=== PATIENT | male | born 1945 | race Caucasian/White ===

== ENCOUNTER 2016-05-04 10:23 | Emergency (ER) | payer OTHER ==
[2016-05-04 10:35] VITALS: RESP 20
[2016-05-04] MEDS ORDERED: KETOROLAC 60 MG/2 ML VIAL IM STA (11:36)
--- NOTE | 2016-05-04 11:52 | ED ---
General Adult HPI - General Chief complaint: Fall Stated complaint: Fall, [facility] Time Seen by Provider: 05/04/16 11:09 Source: patient, RN notes reviewed, old records reviewed Mode of arrival: ambulatory Limitations: no limitations - History of Present Illness Initial comments: This is a 62-year-old male ER for evaluation of fall. Patient has no significant 20 medical history, no headache chest pain shortness of breath or abdominal pain prior to fall. Patient did have a slip and fall from states fall as mechanical on the ice, not on blood thinners, patient did fall backwards landing on right hip right shoulder and hitting head. No loss of consciousness. Patient denies any other complaints of pain. Symptoms evaluate better when he is walking worse when he is sitting. - Related Data Allergies Allergy/AdvReac Type Severity Reaction Status Date / Time hydrocodone [From Lortab] Allergy Swelling Verified 05/04/16 11:38 Sulfa (Sulfonamide Allergy Unknown Verified 05/04/16 11:38 Antibiotics) Childhood Review of Systems ROS Statement: Those systems with pertinent positive or pertinent negative responses have been documented in the HPI. ROS Other: All systems not noted in ROS Statement are negative. Past Medical History Past Medical History: Coronary Artery Disease (CAD), Chest Pain / Angina, Hyperlipidemia, Hypertension, Myocardial Infarction ([place]) History of Any Multi-Drug Resistant Organisms: None Reported Past Surgical History: Heart Catheterization With Stent Additional Past Surgical History / Comment(s): cataract Past Psychological History: No Psychological Hx Reported Smoking Status: Never smoker Past Alcohol Use History: None Reported Past Drug Use History: None Reported General Exam - General Exam Comments Initial Comments: No bony tenderness Limitations: no limitations General appearance: alert, in no apparent distress Head exam: Present: atraumatic, normocephalic, normal inspection Eye exam: Present: normal appearance, PERRL, EOMI. Absent: scleral icterus, conjunctival injection, periorbital swelling ENT exam: Present: normal exam, mucous membranes moist Neck exam: Present: normal inspection. Absent: tenderness, meningismus, lymphadenopathy Respiratory exam: Present: normal lung sounds bilaterally. Absent: respiratory distress, wheezes, rales, rhonchi, stridor Cardiovascular Exam: Present: regular rate, normal rhythm, normal heart sounds. Absent: systolic murmur, diastolic murmur, rubs, gallop, clicks GI/Abdominal exam: Present: soft, normal bowel sounds. Absent: distended, tenderness, guarding, rebound, rigid Extremities exam: Present: normal inspection, full ROM, normal capillary refill. Absent: tenderness, pedal edema, joint swelling, calf tenderness Back exam: Present: normal inspection Neurological exam: Present: alert, oriented X3, CN II-XII intact Psychiatric exam: Present: normal affect, normal mood Skin exam: Present: warm, dry, intact, normal color. Absent: rash Course Vital Signs 05/04/16 10:32 Temperature 98.2 F Pulse Rate 61 Respiratory 20 Rate Blood Pressure 153/73 O2 Sat by Pulse 100 Oximetry - Reevaluation(s) Reevaluation #1: 05/04/16 11:51 Pain at this time is improved Medical Decision Making - Medical Decision Making 6 emailed ESS also to follow with right hip and right shoulder contusion as well as closed head injury. Patient will be discharged home to continue pain medication that he currently is on - Radiology Data Radiology results: report reviewed (CT brain C-spine negative for acute disease , x-ray right shoulder x-ray were negative for traumatic injury), image reviewed Disposition Clinical Impression: Fall, Contusion of right shoulder, Contusion of hip, right, Head injury Disposition: HOME SELF-CARE Condition: Good Instructions: Contusion in Adults (ED), Concussion (ED) Referrals: Nonstaff,Physician [Primary Care Provider] - 1-2 days
--- NOTE | 2016-05-04 12:49 | XR ---
EXAMINATION TYPE: XR Hip Complete RT DATE OF EXAM: 05/04/2016 12:09 PM COMPARISON: NONE HISTORY: Pain TECHNIQUE: 2 views right hip FINDINGS: No acute fractures are evident. The femoral head are difficult with the acetabulum. Vascula r calcification is present. IMPRESSION: 1. No acute osseous elements right hip. Follow-up can be performed as clinically indicated.
--- NOTE | 2016-05-04 12:51 | XR ---
EXAMINATION TYPE: XR shoulder complete RT DATE OF EXAM: 05/04/2016 12:09 PM COMPARISON: NONE HISTORY: Pain, fall on right side TECHNIQUE: Shoulder examined in 3 views FINDINGS: The humeral head articulates with the glenoid. No acromioclavicular joint hypertrophy is evident. There may be some hooking with downward impingemen t of the distal acromion No acute fractures or dislocations are evident. A follow up study can be performed 7-10 days from acute trauma for continued pain. IMPRESSION: 1. No acute osseous abnormality. 2. Some osteoarthritic degenerative change and acromion variation, which could contribute to impingem ent syndrome. Consider MRI for additional evaluation.
--- NOTE | 2016-05-04 13:11 | CT ---
EXAMINATION TYPE: CT brain kaelyn wo con DATE OF EXAM: 05/04/2016 12:22 PM COMPARISON: NONE HISTORY: Slip and fall on ice this am CT DLP: 1788.40 mGycm, Automated exposure control for dose reduction was used. CONTRAST: None CT of the brain is performed utilizing 3 mm thick sections through the posterior fossa and 3 mm thick sections through the remaining calvarium. Study is performed within 24 hours of arrival to the hospital. No abnormal hyperdensity is present to suggest an acute intracranial hemorrhage. No mass lesion is evident. No acute infarcts are evident. Ventricles and sulci are appropriate for the patient age. Paranasal sinuses and mastoid air cells within the [id number] are clear. IMPRESSIONS: 1. No acute intracranial process. CT cervical spine. COMPARISON: None CT of the cervical spine is performed in the axial plane at 2 mm thick sections. Reconstructed image s in the coronal, and sagittal plane are reviewed on the computer. No acute fractures are evident. Vertebral body alignment is normal. Disc space narrowing is present C5-4-5 C5-C6 C6-7. Uncovertebral joint hypertrophy has bilateral mode rate to severe foraminal stenosis. Endplate spurring is anterior thecal sac compression. Some associa dino disc material may be present. Uncovertebral joint hypertrophy is present C5-6 on the left with mo derate left foraminal stenosis. Endplate changes with associated disc material is present C6-7 with a nterior thecal sac compression. No AP spinal canal stenosis is present. Vertebral body heights are preserved. No spinal canal stenosis is evident. IMPRESSIONS: 1. Degenerative disc changes uncovertebral joint hypertrophy and endplate spurring with associated di sc material contributing to foraminal narrowing and anterior thecal sac compression discussed above. 2. No acute abnormality.
[2016-05-04 13:46] VITALS: BP 140/78; PULSE 80; TEMP 98
== END 2016-05-04 13:46 | disposition home or self-care (01) ==
LOC: EC 10:23
DX: S06.0X0A Concussion without loss of consciousness, initial encounter (principal); S40.011A Contusion of right shoulder, initial encounter; S70.01XA Contusion of right hip, initial encounter; Z88.5 Allergy status to narcotic agent; Z88.2 Allergy status to sulfonamides; W00.0XXA Fall on same level due to ice and snow, initial encounter
CPT/HCPCS: 99284; 96372; 73502; 73030; 72125; 70450; J1885

== ENCOUNTER → 2016-05-25 | Outpatient (CLI) | payer OTHER ==
--- NOTE | 2016-05-25 16:28 | US ---
EXAMINATION TYPE: US venous doppler duplex LE RT DATE OF EXAM: 05/25/2016 4:18 PM COMPARISON: NONE CLINICAL HISTORY: RLE Pain and Swelling 580.11XA,583.91XA. rt knee pain and swelling, no prev dvt SIDE PERFORMED: right VESSELS IMAGED: External Iliac Vein (EIV) Common Femoral Vein Deep Femoral Vein Femoral Vein Popliteal Vein Proximal Calf Veins Findings: No evidence for filling defect. The deep venous structures demonstrate normal compressibili ty and augmentation of flow. Right Leg: neg for RLE dvt Results given to Taina in the office at the time of the exam. IMPRESSION: Negative for DVT.
--- NOTE | 2016-05-25 16:37 | XR ---
EXAMINATION TYPE: XR tibia fibula RT DATE OF EXAM: 05/25/2016 4:33 PM CLINICAL HISTORY: pain TECHNIQUE: AP and lateral images of the right tibia and fibula are obtained. COMPARISON: None. FINDINGS: There is no acute fracture/dislocation evident. The joint spaces appear within normal gunter its. The overlying soft tissue appears unremarkable. IMPRESSION: There is no acute fracture or dislocation seen. ICD 10 NO FRACTURE, INITIAL EVALUATION
== END | disposition home or self-care (01) ==
LOC: RADUSWWP 15:38
PROVIDERS: ATTEND Emergency Medicine
DX: S80.11XA Contusion of right lower leg, initial encounter (principal); S83.91XA Sprain of unspecified site of right knee, initial encounter

== ENCOUNTER → 2018-03-26 | Day surgery (SDC) | payer OTHER ==
[2018-03-16 13:46] VITALS: BMI 30.4
[~2018-03-26] MED LIST: GLYCOPYRROLATE 0.2 MG/ML 2 ML VIAL ONE; LACTATED RINGERS 1,000 ML IV SCH; LIDOCAINE 1% 20 ML VIAL (10MG/ML) FOR IV START INTRADERMA ONE; LIDOCAINE 1% INJ 10MG/ML (20 ML MDV) ONE; PROPOFOL 10 MG/ML 20 ML VIAL IV ONE
[2018-03-26 09:24] VITALS: RESP 16; TEMP 98.1
[2018-03-26 09:40] LABS: Glucose,Whole Blood 122 mg/dL (75-99)
--- NOTE | 2018-03-26 10:26 | P.PCN ---
Date of Procedure: 03/26/18 Procedure(s) Performed: Procedure: 1. Esophagogastroduodenoscopy and biopsy. 2. Total colonoscopy. Preoperative diagnosis: Dysphagia and history of polyps. Postoperative diagnosis: 1. Small sliding hiatal hernia with no obvious esophagitis or complicated reflux disease. 2. Mild antral gastritis. 3. Biopsies obtained from the antrum and esophagus. Colonic exam within normal limits. Preparation: HalfLytely prep. Sedation: Was provided by anesthesia. Brief clinical history: The patient is a 72-year-old male who is referred for this evaluation because of history of polyps in addition to dysphagia for the last year or so. His last colonoscopy may have been around 10 years ago. The patient denied weight loss or other alarm symptoms. He has taken medical therapy for acid reflux. Procedure: With the patient on his left lateral decubitus position and after informed consent and adequate sedation, I passed the Olympus-Five minutes H190 video upper endoscope through the cricopharyngeus down the esophagus. GE junction was around 40 cm from the incisors and there was a small sliding hiatal hernia but no obvious esophagitis or complicated reflux disease. The endoscope was then passed into the stomach which was insufflated with air and inspected in detail including the retroflex view in the cardia. There was some mottling and erythema in the antrum but no ulcers or erosions. Pyloric channel, duodenal bulb, post bulbar area and descending duodenum appeared within normal limits. I obtained biopsies from the antrum and esophagus then the endoscope was withdrawn I then then proceeded with the colonoscopy. Perianal area did not show any fissures or fistulas. There were no masses felt on digital rectal examination. The Olympus CFH 190L video colonoscope was then inserted in the rectum in the usual fashion and advanced to the cecum. The mucosa appeared healthy. No obvious polyps or tumors were seen or any obvious diverticular disease or other pathology. I retroflexed the endoscope in the rectum before the endoscope was withdrawn. The patient tolerated the procedure well. Plan: The patient was reassured. Will await biopsy results. I recommended repeat colonoscopy in 5 years. Further workup of his dysphagia to include motility studies will depend on his symptoms and overall nutritional status.
[2018-03-26 11:05] VITALS: BP 132/86; PULSE 61
== END ==
LOC: ORWHC2ENDO 08:36
DX: Z12.11 Encounter for screening for malignant neoplasm of colon (principal); K29.50 Unspecified chronic gastritis without bleeding; K44.9 Diaphragmatic hernia without obstruction or gangrene; Z86.010 Personal history of colon polyps; K21.9 Gastro-esophageal reflux disease without esophagitis; E11.9 Type 2 diabetes mellitus without complications; I25.10 Atherosclerotic heart disease of native coronary artery without angina pectoris; I10 Essential (primary) hypertension; E78.5 Hyperlipidemia, unspecified; I25.2 Old myocardial infarction; F17.200 Nicotine dependence, unspecified, uncomplicated; M19.90 Unspecified osteoarthritis, unspecified site; Z88.2 Allergy status to sulfonamides; Z88.5 Allergy status to narcotic agent; Z79.84 Long term (current) use of oral hypoglycemic drugs; Z79.82 Long term (current) use of aspirin; Z79.899 Other long term (current) drug therapy
CPT/HCPCS: 88305; 88342; 43239; J2001; J2704; G0105; 45378

== ENCOUNTER 2019-05-12 20:26 | Observation (INO) | payer OTHER, MEDICARE ==
[2019-05-12] MEDS ORDERED: PANTOPRAZOLE 40 MG/10 ML VIAL IVP STA (21:23)
[2019-05-12 21:33] LABS: Basophils % (A) 1 %; Eosinophils # (A) 0.3 k/uL (0-0.7); Eosinophils % (A) 6 %; HCT 42.4 % (39.0-53.0); HGB 14.3 gm/dL (13.0-17.5); Lymphocytes # (A) 1.4 k/uL (1.0-4.8); Lymphocytes % (A) 27 %; MCH 31.6 pg (25.0-35.0); MCHC 33.7 g/dL (31.0-37.0); MCV 93.6 fL (80.0-100.0); Mean Platelet Volume 7.4; Monocytes # (A) 0.3 k/uL (0-1.0); Monocytes % (A) 6 %; Neutrophils # (A) 2.9 k/uL (1.3-7.7); Neutrophils % (A) 58 %; Platelet Count 125 k/uL (150-450); RBC 4.53 m/uL (4.30-5.90); RDW 13.4 % (11.5-15.5)
--- NOTE | 2019-05-12 21:40 | ED ---
Chest Pain HPI - General Source: patient Mode of arrival: ambulatory Limitations: no limitations <Nadya Azevedo - Last Filed: 05/12/19 23:36> <Lindsey Baldwin - Last Filed: 05/13/19 23:28> - General Chief Complaint: Chest Pain Stated Complaint: Chest pain Time Seen by Provider: 05/12/19 21:15 - History of Present Illness Initial Comments: Patient is a 73-year-old male, with past medical history of heart disease, presenting to the emergency Department with complaints of a chest pain that started 1 hour prior to arrival. Patient states he describes the pain as starting in the middle of his chest and it feels like it is burning that is moving upwards. Patient states it lasted for proximally 10 minutes and then has subsided. He is currently pain-free. He states he has had a heart attack in the past and having to have 3 stents placed and he feels like this feeling was similar to that. Patient states he does take a medicine for heartburn. He states he gets this feeling on multiple occasions sometimes it lasts only 10 minutes sometimes 1 minute. He denies any chest pressure or pain in his left a rm. He denies any nausea, vomiting, abdominal pain, shortness of breath. He denies having a fever. He has no other complaints at this time. Upon arrival to the ER his vital signs are stable. (Nadya Azevedo) - Related Data Home Medications Medication Instructions Recorded Confirmed Atorvastatin [Lipitor] 40 mg PO HS 08/17/17 05/13/19 Lisinopril [Prinivil] 10 mg PO DAILY 08/17/17 05/13/19 Omeprazole [PriLOSEC] 20 mg PO AC-BID 08/17/17 05/13/19 metFORMIN HCL [Glucophage] 500 mg PO DAILY 08/17/17 05/13/19 Aspirin 325 mg PO DAILY 03/16/18 05/13/19 Cholecalciferol [Vitamin D3 (25 1,000 unit PO DAILY 05/13/19 05/13/19 Mcg = 1000 Iu)] Allergies Allergy/AdvReac Type Severity Reaction Status Date / Time hydrocodone [From Lortab] Allergy Swelling Verified 05/13/19 09:36 Sulfa (Sulfonamide Allergy Unknown Verified 05/13/19 09:36 Antibiotics) Childhood tramadol Allergy throat and Verified 05/13/19 09:36 mouth swelling Review of Systems ROS Other: All systems not noted in ROS Statement are negative. <JollyNadya Francisco - Last Filed: 05/12/19 23:36> ROS Other: All systems not noted in ROS Statement are negative. <Lindsey Baldwin - Last Filed: 05/13/19 23:28> ROS Statement: Those systems with pertinent positive or pertinent negative responses have been documented in the HPI. EKG Findings - EKG Comments: EKG Findings:: Ventricular rate 56, IL interval 240, QTC 399. Sinus bradycardia with first-degree AV block. No acute ST segment elevations. <Nadya Azevedo - Last Filed: 05/12/19 23:36> Past Medical History Past Medical History: Coronary Artery Disease (CAD), Diabetes Mellitus, GERD/Reflux, Hyperlipidemia, Hypertension, Myocardial Infarction (ID), Osteoarthritis (OA), Skin Disorder Additional Past Medical History / Comment(s): palpitations, constipation/diarrhea, has had blood in stool, hx gout, skin tags, Last Myocardial Infarction Date:: 2014 History of Any Multi-Drug Resistant Organisms: None Reported Past Surgical History: Heart Catheterization With Stent, Tonsillectomy Additional Past Surgical History / Comment(s): abdi cataracts, 3 cardiac stents Past Anesthesia/Blood Transfusion Reactions: No Reported Reaction Date of Last Stent Placement:: unknown Past Psychological History: Anxiety, Depression Smoking Status: Former smoker Past Alcohol Use History: None Reported Past Drug Use History: None Reported - Past Family History Mother Family Medical History: Myocardial Infarction (ID) Father Family Medical History: Congestive Heart Failure (CHF) <Nadya Azevedo - Last Filed: 05/12/19 23:36> General Exam Limitations: no limitations <Nadya Azevedo - Last Filed: 05/12/19 23:36> - General Exam Comments Initial Comments: GENERAL: Well-appearing, well-nourished and in no acute distress. HEAD: Atraumatic, normocephalic. EYES: Pupils equal round and reactive to light, extraocular movements intact, sclera anicteric, conjunctiva are normal. ENT: TMs normal, nares patent, oropharynx clear without exudates. Moist mucous membranes. NECK: Normal range of motion, supple without lymphadenopathy or JVD. LUNGS: Breath sounds clear to auscultation bilaterally and equal. No wheezes rales or rhonchi. HEART: Regular rate and rhythm without murmurs, rubs or gallops. No pain with palpation of the sternum. ABDOMEN: Soft, nontender, normoactive bowel sounds. No guarding, no rebound. No masses appreciated. : Deferred EXTREMITIES: Normal range of motion, no pitting or edema. No clubbing or cyanosis. NEUROLOGICAL: Normal speech, normal gait. PSYCH: Normal mood, normal affect. SKIN: Warm, Dry, normal turgor, no rashes or lesions noted. (Nadya Azevedo) Course Vital Signs 05/12/19 05/12/19 20:37 22:07 Temperature 98.3 F 97.4 F L Pulse Rate 58 L 54 L Respiratory 16 18 Rate Blood Pressure 145/82 129/88 O2 Sat by Pulse 96 96 Oximetry Chest Pain [facility] <Nadya Azevedo - Last Filed: 05/12/19 23:36> <Lindsey Baldwin - Last Filed: 05/13/19 23:28> - [facility] Patient is a 73-year-old male presenting with chest discomfort happen one hour prior to arrival. He states this lasted approximately 10 minutes and is currently symptom free. His exam is unremarkable. Vital signs are stable. EKG shows bradycardia with first-degree AV block, no other acute abnormalities. Patient's lab work today is unremarkable, troponin is normal. Chest x-ray shows no acute findings. I discussed these findings with the patient. Patient was reassessed and continues to be symptom free. Patient does have significant heart history and given this with his symptom onset I recommended him stay in observation with cardiac consult. Patient is in agreement with this. Patient will be admitted under Dr. Okeefe with consult to cardiology. Case discussed with Dr. Baldwin who agrees to this plan of care. (Nadya Azevedo) I was available for consultation in the emergency department. The history and physical exam were done by the midlevel provider. I was consulted for this patients care. I reviewed the case with the midlevel provider and based on their presentation of the patient, I agree with the assessment, medical decision making and plan of care as documented. The patient presents with chest pain. I evaluated him myself and he was pain free with no reproducible pain. We recommended hospital admission for which the patient agreed. He was admitted to Dr. Okeefe who i discussed the case with. Chart was dictated using [employer] dictation software. Attempts were made to correct any dictation errors however some typographical errors may persist. (Lindsey Baldwin) Disposition Is patient prescribed a controlled substance at d/c from ED?: No Decision Date: 05/12/19 Decision Time: 22:40 <Nadya Azevedo - Last Filed: 05/12/19 23:36> <Lindsey Baldwin - Last Filed: 05/13/19 23:28> Clinical Impression: Chest pain Disposition: ADMITTED IP TO THIS HOSP Condition: Stable
[2019-05-12 21:42] LABS: ALT 46 U/L (4-49); AST 36 U/L (17-59); African American GFR (CKD) >90 (>60 ml/min/1.73 sqM); Albumin 4.5 g/dL (3.5-5.0); Alkaline Phosphatase 77 U/L (38-126); Anion Gap 8 mmol/L; Blood Urea Nitrogen 17 mg/dL (9-20); Calcium 9.6 mg/dL (8.4-10.2); Carbon Dioxide 25 mmol/L (22-30); Chloride 103 mmol/L (98-107); Glucose 131 mg/dL (74-99); Magnesium 1.8 mg/dL (1.6-2.3); Non-African American GFR(CKD) 88 (>60 ml/min/1.73 sqM); Potassium 4.2 mmol/L (3.5-5.1); Sodium 136 mmol/L (137-145); Total Bilirubin 0.5 mg/dL (0.2-1.3); Total Protein 7.1 g/dL (6.3-8.2)
[2019-05-12 21:44] LABS: Partial Thromboplastin Time 25.8 sec (22.0-30.0); Prothrombin Time 10.5 sec (9.0-12.0)
--- NOTE | 2019-05-12 21:50 | XR ---
EXAMINATION TYPE: XR chest 2V DATE OF EXAM: 05/12/2019 COMPARISON: 01/20/2013 HISTORY: Chest pain TECHNIQUE: FINDINGS: Heart is normal. Lungs are clear of infiltrate. There is no pleural effusion. There are no hilar masses. Thoracic aorta is atheromatous. Bony thorax is intact. IMPRESSION: No active cardiopulmonary disease. No change.
[2019-05-12 22:09] VITALS: RESP 18
[2019-05-12] MEDS ORDERED: NITROGLYCERIN SL TABS 0.4 MG TAB SUBLINGUAL PRN (22:38)
[2019-05-13 03:28] LABS: Cholesterol 159 mg/dL (<200); HDL Cholesterol 33 mg/dL (40-60); LDL Cholesterol,Calculated 58 mg/dL (0-99); Triglycerides 339 mg/dL (<150)
[2019-05-13 08:37] VITALS: TEMP 97.6
--- NOTE | 2019-05-13 08:44 | P.CRDCN ---
History of Present Illness History of present illness: This is Dr. Seay dictating a consult on this patient The patient was interviewed and examined by me IMPRESSION / ASSESSMENT: Midsternal chest discomfort radiating up into the jaw and neck, associated with dizziness, similar to his episode when he had acute myocardial infarction and 3 stents placed Type 2 diabetes Hypertension Normal cardiac enzymes Elevated triglycerides of 339, LDL 58 and HDL 33 Patient states he had a coronary stent in this hospital but I don't see any records of that in the EMR PLAN: Coronary angiography versus stress testing. Discussed the patient. I would recommend coronary angiography since his symptoms are very similar to what he experienced 3 years back Continue cardiac medications HPI Patient was sitting watching television when he started experiencing midsternal chest discomfort that radiated to the neck and was associated with dizziness. The episode lasted for about 10 minutes. He describes it as a burning discomfort similar to his heart attack 3 years back. Normal cardiac enzymes On appropriate medical treatment atorvastatin lisinopril, metoprolol and metformin and aspirin ROS: No fever chills or rigors, no cough, phlegm or expectoration, no nausea, vomiting or diarrhea, no hematuria, dysuria, no musculoskeletal complaints, no strokes or seizures, no skin lesions. EXAMINATION: Afebrile pulse rate in the 50s blood pressure 115/68 mmHg Breath sounds are clear no rhonchi no crackles Normal heart sounds no murmurs no gallops No carotid bruits no JVD Patient is lying in bed comfortably, supine Abdomen soft nontender Complains of intermittent discomfort in the right groin pulses are well palpable. Has been told he has an aneurysm repair REVIEW OF LABS, ECG & MEDICAL DATA Past history of coronary artery disease status post cardiac stenting in the setting of an acute myocardial infarction according to the patient, diabetes was discovered thereafter did history of elevated triglycerides and a low HDL, hypertension Coronary stenting Normal white count, hemoglobin 14.3, platelet count 125,000 Sodium 136, potassium 4.2 Serial cardiac enzymes are normal Triglycerides 339, LDL 58 HDL 33 total. 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, unsure of the exact location of this time we will get records He's had a peripheral angiogram in the past Past Medical History Past Medical History: Coronary Artery Disease (CAD), Diabetes Mellitus, GERD/Reflux, Hyperlipidemia, Hypertension, Myocardial Infarction ([place]), Osteoarthritis (OA), Skin Disorder Additional Past Medical History / Comment(s): palpitations, constipation/diarrhea, has had blood in stool, hx gout, skin tags, Last Myocardial Infarction Date:: 2014 History of Any Multi-Drug Resistant Organisms: None Reported Past Surgical History: Heart Catheterization With Stent, Tonsillectomy Additional Past Surgical History / Comment(s): abdi cataracts, 3 cardiac stents Past Anesthesia/Blood Transfusion Reactions: No Reported Reaction Date of Last Stent Placement:: unknown Past Psychological History: Anxiety, Depression Smoking Status: Former smoker Past Alcohol Use History: None Reported Past Drug Use History: None Reported - Past Family History Mother Family Medical History: Myocardial Infarction (ND) Father Family Medical History: Congestive Heart Failure (CHF) Medications and Allergies Home Medications Medication Instructions Recorded Confirmed Type Atorvastatin [Lipitor] 40 mg PO HS 08/17/17 03/26/18 History Hydrocodone/Acetaminophen [Vicodin 1 each PO BID PRN 08/17/17 03/26/18 History Es 7.5-300 mg Tablet] Lisinopril [Prinivil] 5 mg PO BID 08/17/17 03/26/18 History Metoprolol Tartrate [Lopressor] 12.5 mg PO BID 08/17/17 03/26/18 History Omeprazole [PriLOSEC] 20 mg PO AC-BID 08/17/17 03/26/18 History metFORMIN HCL [Glucophage] 500 mg PO DAILY 08/17/17 03/26/18 History Aspirin 325 mg PO DAILY 03/16/18 03/26/18 History Allergies Allergy/AdvReac Type Severity Reaction Status Date / Time hydrocodone [From Lortab] Allergy Swelling Verified 05/12/19 20:41 Sulfa (Sulfonamide Allergy Unknown Verified 05/12/19 20:41 Antibiotics) Childhood tramadol Allergy throat and Verified 05/12/19 20:41 mouth swelling Physical Exam Vitals: Vital Signs Temp Pulse Pulse Resp BP BP Pulse Ox 05/13/19 08:00 97.6 F 50 L 18 115/68 96 05/13/19 04:00 97.5 F L 46 L 18 114/66 96 05/13/19 00:00 54 L 18 05/12/19 23:45 97.4 F L 54 L 18 143/95 99 05/12/19 22:07 97.4 F L 54 L 18 129/88 96 05/12/19 20:37 98.3 F 58 L 16 145/82 96 Intake and Output 05/12/19 05/13/19 05/13/19 22:59 06:59 14:59 Other: Weight 90.718 kg 92.3 kg Results 05/12/19 20:48 05/12/19 20:48 Cardiac Enzymes 05/12/19 05/12/19 05/13/19 Range/Units 20:48 20:48 02:56 AST 36 (17-59) U/L Troponin I <0.012 <0.012 (0.000-0.034) ng/mL Coagulation 05/12/19 Range/Units 20:48 PT 10.5 (9.0-12.0) sec APTT 25.8 (22.0-30.0) sec Lipids 05/13/19 Range/Units 02:56 Triglycerides 339 H (<150) mg/dL Cholesterol 159 (<200) mg/dL HDL Cholesterol 33 L (40-60) mg/dL CBC 05/12/19 Range/Units 20:48 WBC 5.0 (3.8-10.6) k/uL RBC 4.53 (4.30-5.90) m/uL Hgb 14.3 (13.0-17.5) gm/dL Hct 42.4 (39.0-53.0) % Plt Count 125 L (150-450) k/uL Comprehensive Metabolic Panel 05/12/19 Range/Units 20:48 Sodium 136 L (137-145) mmol/L Potassium 4.2 (3.5-5.1) mmol/L Chloride 103 (98-107) mmol/L Carbon Dioxide 25 (22-30) mmol/L BUN 17 (9-20) mg/dL Creatinine 0.84 (0.66-1.25) mg/dL Glucose 131 H (74-99) mg/dL Calcium 9.6 (8.4-10.2) mg/dL AST 36 (17-59) U/L ALT 46 (4-49) U/L Alkaline Phosphatase 77 (38-126) U/L Total Protein 7.1 (6.3-8.2) g/dL Albumin 4.5 (3.5-5.0) g/dL Current Medications Generic Name Dose Route Start Last Admin Trade Name Freq PRN Reason Stop Dose Admin Aspirin 325 mg 05/13/19 09:00 Aspirin PO DAILY TIMI Nitroglycerin 0.4 mg 05/12/19 22:38 Nitrostat SUBLINGUAL Q5M PRN Chest Pain Intake and Output 05/12/19 05/13/19 05/13/19 22:59 06:59 14:59 Other: Weight 90.718 kg 92.3 kg 05/12/19 20:48 05/12/19 20:48
[2019-05-13] MEDS ORDERED: ASPIRIN 325 MG TAB PO SCH ×2 (09:00→10:15)
[2019-05-13 09:50] LABS: Glucose,Whole Blood 137 mg/dL (75-99)
[2019-05-13] MEDS ORDERED: PANTOPRAZOLE 40 MG TABLET PO SCH (10:15)
[2019-05-13] MEDS ORDERED: METOPROLOL TARTRATE 12.5 MG TAB PO SCH (10:15)
[2019-05-13] MEDS ORDERED: CHOLECALCIFEROL 1,000 UNIT TAB PO SCH (10:15)
[2019-05-13] MEDS ORDERED: ALPRAZolam 0.5 MG TAB PO PRN (10:21)
[2019-05-13] MEDS ORDERED: ALPRAZolam 0.25 MG TAB PO PRN (10:21)
[2019-05-13] MEDS ORDERED: SODIUM CHLORIDE 0.9% 1,000 ML in EMPTY BAG 1 BAG IV ONE (10:21)
[2019-05-13] MEDS ORDERED: ASPIRIN 325 MG TAB PO ONE (10:25)
--- NOTE | 2019-05-13 11:09 | P.HPIM ---
History of Present Illness Patient came in with the complaints of epigastric abdominal burning sensation without nausea patient had similar pain many abdomen had a microinfarction and at that time he ended up with 3 stents. Patient denied and diaphoresis asso ciated with the denied any nausea there is any is some associated dizziness patient denied any cough patient chest pain is constant moderate in severity nonradiating. Because he had similar pain in the past cardiology is recommending cardiac catheterization patient is willing to go for cardiac cath eterization today. Although gastroesophageal reflux disease or gastritis continue bit into his symptoms cannot be ruled out patient is oriented Protonix y EKG showing sinus bradycardia. Chest x-ray did not show any infiltrate. Review of Systems REVIEW OF SYSTEMS: CONSTITUTIONAL: No fever, no malaise, no fatigue. HEENT: No recent visual problems or hearing problems. Denied any sore throat. CARDIOVASCULAR: No orthopnea, PND, no palpitations, no syncope. PULMONARY: No shortness of breath, no cough, no hemoptysis. GASTROINTESTINAL: No diarrhea, no nausea, no vomiting, no abdominal pain. NEUROLOGICAL: No headaches, no weakness, no numbness. HEMATOLOGICAL: Denies any bleeding or petechiae. GENITOURINARY: Denies any burning micturition, frequency, or urgency. MUSCULOSKELETAL/RHEUMATOLOGICAL: Denies any joint pain, swelling, or any muscle pain. ENDOCRINE: Denies any polyuria or polydipsia. The rest of the 14-point review of systems is negative. Past Medical History Past Medical History: Coronary Artery Disease (CAD), Diabetes Mellitus, GERD/Reflux, Hyperlipidemia, Hypertension, Myocardial Infarction (AR), Osteoarthritis (OA), Skin Disorder Additional Past Medical History / Comment(s): palpitations, constipation/diarrhea, has had blood in stool, hx gout, skin tags, Last Myocardial Infarction Date:: 2014 History of Any Multi-Drug Resistant Organisms: None Reported Past Surgical History: Heart Catheterization With Stent, Tonsillectomy Additional Past Surgical History / Comment(s): abdi cataracts, 3 cardiac stents Past Anesthesia/Blood Transfusion Reactions: No Reported Reaction Date of Last Stent Placement:: unknown Past Psychological History: Anxiety, Depression Smoking Status: Former smoker Past Alcohol Use History: None Reported Past Drug Use History: None Reported - Past Family History Mother Family Medical History: Myocardial Infarction (AR) Father Family Medical History: Congestive Heart Failure (CHF) Medications and Allergies Home Medications Medication Instructions Recorded Confirmed Type Atorvastatin [Lipitor] 40 mg PO HS 08/17/17 05/13/19 History Lisinopril [Prinivil] 10 mg PO DAILY 08/17/17 05/13/19 History Metoprolol Tartrate [Lopressor] 12.5 mg PO BID 08/17/17 05/13/19 History Omeprazole [PriLOSEC] 20 mg PO AC-BID 08/17/17 05/13/19 History metFORMIN HCL [Glucophage] 500 mg PO DAILY 08/17/17 05/13/19 History Aspirin 325 mg PO DAILY 03/16/18 05/13/19 History Cholecalciferol [Vitamin D3 (25 1,000 unit PO DAILY 05/13/19 05/13/19 History Mcg = 1000 Iu)] Allergies Allergy/AdvReac Type Severity Reaction Status Date / Time hydrocodone [From Lortab] Allergy Swelling Verified 05/13/19 09:36 Sulfa (Sulfonamide Allergy Unknown Verified 05/13/19 09:36 Antibiotics) Childhood tramadol Allergy throat and Verified 05/13/19 09:36 mouth swelling Physical Exam Vitals: Vital Signs Temp Pulse Pulse Resp BP BP Pulse Ox 05/13/19 08:00 97.6 F 50 L 18 115/68 96 05/13/19 04:00 97.5 F L 46 L 18 114/66 96 05/13/19 00:00 54 L 18 05/12/19 23:45 97.4 F L 54 L 18 143/95 99 05/12/19 22:07 97.4 F L 54 L 18 129/88 96 05/12/19 20:37 98.3 F 58 L 16 145/82 96 Intake and Output 05/12/19 05/13/19 05/13/19 22:59 06:59 14:59 Other: Voiding Method Toilet Weight 90.718 kg 92.3 kg PHYSICAL EXAMINATION: GENERAL: The patient is alert and oriented x3, not in any acute distress. Well developed, well nourished. HEENT: Pupils are round and equally reacting to light. EOMI. No scleral icterus. No conjunctival pallor. Normocephalic, atraumatic. No pharyngeal erythema. No thyromegaly. CARDIOVASCULAR: S1 and S2 present. No murmurs, rubs, or gallops. PULMONARY: Chest is clear to auscultation, no wheezing or crackles. ABDOMEN: Soft, nontender, nondistended, normoactive bowel sounds. No palpable organomegaly. MUSCULOSKELETAL: No joint swelling or deformity. EXTREMITIES: No cyanosis, clubbing, or pedal edema. NEUROLOGICAL: Gross neurological examination did not reveal any focal deficits. SKIN: No rashes. Results CBC & Chem 7: 05/12/19 20:48 05/12/19 20:48 Labs: Abnormal Lab Results - Last 24 Hours (Table) 05/12/19 05/12/19 05/13/19 Range/Units 20:48 20:48 02:56 Plt Count 125 L (150-450) k/uL Sodium 136 L (137-145) mmol/L Glucose 131 H (74-99) mg/dL POC Glucose (mg/dL) (75-99) mg/dL Triglycerides 339 H (<150) mg/dL HDL Cholesterol 33 L (40-60) mg/dL 05/13/19 Range/Units 09:47 Plt Count (150-450) k/uL Sodium (137-145) mmol/L Glucose (74-99) mg/dL POC Glucose (mg/dL) 137 H (75-99) mg/dL Triglycerides (<150) mg/dL HDL Cholesterol (40-60) mg/dL Thrombosis Risk Factor Assmnt - Choose All That Apply Any of the Below Risk Factors Present?: Yes Each Factor Represents 1 point: Acute AR, Obesity (BMI >25) Other Risk Factors: Yes Each Risk Factor Represents 2 Points: Age 61-74 years Other congenital or acquired thrombophilia - If yes, enter type in comment: No Thrombosis Risk Factor Assessment Total Risk Factor Score: 4 Thrombosis Risk Factor Assessment Level: Moderate Risk Assessment and Plan Plan: -Chest pain: Your cardiac her gases with reflux disease patient will undergo cardiac catheterization of this negative patient will be discharged on a Prilosec for 14 days. -Coronary artery disease with previous stents in the past on metoprolol is being held because of bradycardia a she is under dose of metoprolol very low-dose of metoprolol. Probably will not require metoprolol Discharge type 2 diabetes mellitus metformin will be held and the patient was started on sliding scale insulin -Hypertension -Coronary artery disease-hold off lisinopril because of low normal blood pressure probably he'll require this medication upon discharge
[2019-05-13 11:35] LABS: Glucose,Whole Blood 135 mg/dL (75-99)
[2019-05-13] MEDS ORDERED: IV FLUID CONTINUATION 950 ML IV ONE (12:10)
[2019-05-13] MEDS ORDERED: LIDOCAINE 1% INJ 10MG/ML (20 ML MDV) ONE (12:12)
[2019-05-13] MEDS ORDERED: VERAPAMIL 2.5 MG/ML 2 ML AMP ONE (12:12)
[2019-05-13] MEDS ORDERED: HEPARIN SODIUM 1,000 UN/ML (10ML VL) ONE (12:23)
[2019-05-13] MEDS ORDERED: fentaNYL (PF) 50 MCG/ML 2 ML AMP ONE (12:23)
[2019-05-13] MEDS ORDERED: fentaNYL (PF) 50 MCG/ML 2 ML AMP IV ONE (12:26)
[2019-05-13] MEDS ORDERED: LIDOCAINE 1% INJ 10MG/ML (20 ML MDV) SQ ONE (12:30)
[2019-05-13] MEDS ORDERED: MIDAZOLAM 2 MG/2 ML VIAL IV ONE (12:31)
[2019-05-13] MEDS ORDERED: VERAPAMIL SYRINGE (5 MG/10 ML) INTRAARTER ONE (12:31)
[2019-05-13] MEDS ORDERED: HEPARIN SODIUM 1,000 UN/ML (10ML VL) IV ONE (12:40)
[2019-05-13] MEDS ORDERED: IOPAMIDOL-370 125ML BTL INJ ONE (12:43)
[2019-05-13] MEDS ORDERED: RX INFO: IV CONTRAST WAS GIVEN 1 EACH MISC MISCELLANE PRN (12:57)
[2019-05-13] MEDS ORDERED: SODIUM CHLORIDE 0.9% 1,000 ML IV SCH (13:00)
[2019-05-13] MEDS: INSULIN ASPART (NovoLOG) 100 UNIT/ML VIAL SQ SCH ×2 (14:17→17:28)
--- NOTE | 2019-05-13 15:05 | CC ---
CARDIAC CATHETERIZATION REPORT Mr. Branham is a 73-year-old male known history of coronary artery disease, history of hypertension, diabetes mellitus, who presented to the hospital with symptoms of discomfort reminding him of the way he felt prior to his stenting in 2012. He was evaluated by Dr. Seay, recommendation was made regarding cardiac catheterization. The procedures, risks, and complication were discussed with the patient who is in full understanding and agreement. PROCEDURE: Patient was brought to the manager cardiac cath in the fasting semi-sedated state, after receiving fentanyl and Benadryl and achieving moderate conscious sedated state. Using Xylocaine anesthesia and Seldinger technique, a 6-Latvian sheath was introduced in the right radial artery. Selective right and left coronary angiography was performed using 5- Latvian 3.5 bend right and left Alina catheter. Multiple views of the coronary artery, including hemiaxial views were obtained. Following that, a 5-Latvian tight pigtail catheter was introduced in the left ventricle and the pressures were calculated. Following that, catheter and sheath were removed. Hemostasis was obtained with deployment of a TR band. There was no immediate complication. Patient is returned to his room in stable condition. Of note, the patient received 5000 units of intravenous heparin as well as intra-arterial verapamil. FINDINGS: FLUOROSCOPY: There was severe calcification involving all the coronary arteries. LEFT MAIN: This is a large-sized vessel, bifurcating into left circumflex, left anterior descending artery. Left main coronary artery has no evidence of high-grade stenosis. LEFT ANTERIOR DESCENDING ARTERY: This is a large-sized vessel. It tapers down in distal third, giving rise to a diagonal branch of small caliber. At the left anterior descending artery, stented segment in the mid area is patent. There is about 20% to 30% plaque proximally. The rest of the vessel has no high-grade stenosis. LEFT CIRCUMFLEX: This is a nondominant vessel, giving rise to a large obtuse marginal branch. The stented segment in the proximal left circumflex is patent. The obtuse marginal branch has a 30% to 40% plaque in the distal area. The rest of the vessel has no high-grade stenosis. The proximal left circumflex has a 30% plaque. RIGHT CORONARY ARTERY: This is a large dominant vessel, bifurcating to PDA and posterolateral segment and branches, heavily calcified throughout its course. The right coronary artery throughout its course has diffuse intimal disease with area of stenosis up to 30% to 40% without any evidence of high-grade stenosis. LEFT VENTRICULOGRAM: Left ventriculogram is not performed. HEMODYNAMICS: There was no gradient across the aortic valve. The ventricular end-diastolic pressure was 14-16 mmHg. CONCLUSION: 1. Patent stent to the LAD and to the left circumflex. 2. Calcified coronary arteries. 3. Moderate triple-vessel coronary artery disease. RECOMMENDATION: In view of finding anatomy, recommend continue medical therapy, the right coronary artery did not show any significant progression since 2012. I will maximize his medical therapy, he may benefit from a myocardial perfusion imaging as an outpatient to further evaluate his coronary perfusion and depending on his progress, further recommendations will be made. Those findings and recommendation were discussed with the patient who is in full understanding and agreement. Duration of the procedure is 18 minutes. MMODL / IJN: [id number] /
[2019-05-13 16:00] VITALS: BP 118/66; PULSE 61
[2019-05-13 16:50] LABS: Glucose,Whole Blood 142 mg/dL (75-99)
[2019-05-13] MEDS ORDERED: ATORVASTATIN 40 MG TAB PO SCH (21:00)
[2019-05-14] MEDS ORDERED: LISINOPRIL 10 MG TAB PO SCH ×2 (09:00)
[2019-05-14] MEDS ORDERED: ASPIRIN 81 MG PO SCH (09:00)
--- NOTE | 2019-05-17 13:14 | P.DS ---
Providers Date of admission: 05/12/19 22:37 Expected date of discharge: 05/13/19 Attending physician: Lobo Sainz MD Consults: 05/12/19 22:38 Consult Physician Urgent Consulting Provider: Sameer Tucker Consult Reason/Comments: chest pain Do you want consulting provider notified?: Yes, Notify in am Primary care physician: Elba Higuerabecky [facility] Course: Patient had a cardiac catheterization which did not show any significant atherosclerotic occlusive disease was subsequently discharged metoprolol was discontinued because of sinus bradycardia. The rest of the details please refer to my dictation of [facility] Patient Condition at Discharge: Stable Plan - Discharge Summary Discharge Rx Participant: No New Discharge Prescriptions: Discontinued Metoprolol Tartrate [Lopressor] 12.5 mg PO BID No Action metFORMIN HCL [Glucophage] 500 mg PO DAILY Omeprazole [PriLOSEC] 20 mg PO AC-BID Lisinopril [Prinivil] 10 mg PO DAILY Atorvastatin [Lipitor] 40 mg PO HS Aspirin 325 mg PO DAILY Cholecalciferol [Vitamin D3 (25 Mcg = 1000 Iu)] 1,000 unit PO DAILY Discharge Medication List Atorvastatin [Lipitor] 40 mg PO HS 08/17/17 [History] Lisinopril [Prinivil] 10 mg PO DAILY 08/17/17 [History] Omeprazole [PriLOSEC] 20 mg PO AC-BID 08/17/17 [History] metFORMIN HCL [Glucophage] 500 mg PO DAILY 08/17/17 [History] Aspirin 325 mg PO DAILY 03/16/18 [History] Cholecalciferol [Vitamin D3 (25 Mcg = 1000 Iu)] 1,000 unit PO DAILY 05/13/19 [History] Follow up Appointment(s)/Referral(s): Juan Jose Seay MD [STAFF PHYSICIAN] - 1 Week (Follow-up with Dr. Seay/Sarah Gong/[facility] will call you with appointment.) Elba Pool MD [Primary Care Provider] - 1-2 days Patient Instructions/Handouts: *Surgery [facility] - After Heart Catheterization - [employer] Professor Instructions Activity/Diet/Wound Care/Special Instructions: See activity restriction instructions Discharge Disposition: HOME SELF-CARE
== END 2019-05-13 18:24 | disposition home or self-care (01) ==
LOC: EC 20:26 → 1SOBS 22:37
PROVIDERS: ADMIT Internal Medicine; ATTEND Internal Medicine
DX: R07.89 Other chest pain (principal); I44.0 Atrioventricular block, first degree; I25.2 Old myocardial infarction; I25.10 Atherosclerotic heart disease of native coronary artery without angina pectoris; Z95.5 Presence of coronary angioplasty implant and graft; E11.9 Type 2 diabetes mellitus without complications; K21.9 Gastro-esophageal reflux disease without esophagitis; E78.5 Hyperlipidemia, unspecified; I10 Essential (primary) hypertension; E78.00 Pure hypercholesterolemia, unspecified; M19.90 Unspecified osteoarthritis, unspecified site; M10.9 Gout, unspecified; F32.9 Major depressive disorder, single episode, unspecified; F41.9 Anxiety disorder, unspecified; Z87.891 Personal history of nicotine dependence; R00.1 Bradycardia, unspecified; T44.7X5A Adverse effect of beta-adrenoreceptor antagonists, initial encounter; Z79.899 Other long term (current) drug therapy; Z79.82 Long term (current) use of aspirin; Z79.84 Long term (current) use of oral hypoglycemic drugs; Z88.5 Allergy status to narcotic agent; Z88.2 Allergy status to sulfonamides; Z82.49 Family history of ischemic heart disease and other diseases of the circulatory system; Z98.42 Cataract extraction status, left eye; Z98.41 Cataract extraction status, right eye
CPT/HCPCS: 93005 ×2; 96374; 99285; 36415; 93458; 80061; 80053; 83735; 84484 ×2; 85025; 85610; 85730; 71046; G0378 ×2; C1769; C1894; J2250; J2001; J3010; J1644; C9113; Q9967